=== PATIENT | female | born 1985 | race Caucasian/White ===

== ENCOUNTER 2021-06-20 15:09 | Emergency (ER) | payer BC ==
[~2021-06-20] VITALS: Ht 165.1 cm; Wt 68.9 kg
[2021-06-20 15:21] VITALS: BP 132/95
[2021-06-20] MEDS ORDERED: BACITRACIN OINT 500 UNITS/GM PKT TP ONE (15:40)
[2021-06-20] MEDS ORDERED: AMOXIL/CLAVULANATE 875/125 MG 1 TAB PO ONE (15:40)
--- NOTE | 2021-06-20 15:44 | NUR ---
PT APPLIED ATB OINTMENT PER ORDER TO WOUND
[2021-06-20] MEDS ORDERED: IBUP-1842 PO (16:00)
[2021-06-20] MEDS ORDERED: BACI1PAC6 TP (16:00)
[2021-06-20] MEDS ORDERED: AMOX-1000 PO (16:00)
[2021-06-20 17:12] VITALS: BP 132/95
--- NOTE | 2021-06-20 17:12 | NUR ---
Patient discharged with v/s stable. Written and verbal after care instructions given and explained. Patient alert, oriented and verbalized understanding of instructions. Ambulatory with steady gait. All questions addressed prior to discharge. ID band removed. Patient advised to follow up with PMD. Rx of AUGMENTIN, BACITRACIN OINTMENT, IBUPROFEN given. Patient educated on indication of medication including possible reaction and side effects. Opportunity to ask questions provided and answered.
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
== END 2021-06-20 17:12 | disposition home or self-care (01) ==
LOC: MED 15:09
DX: S51.851A Open bite of right forearm, initial encounter (principal); Z88.1 Allergy status to other antibiotic agents; W55.01XA Bitten by cat, initial encounter; Y93.89 Activity, other specified; Y92.89 Other specified places as the place of occurrence of the external cause; Y99.8 Other external cause status
CPT/HCPCS: 90471; 90715; 99283